=== PATIENT | male | born 1955 | race Two or more races ===

== ENCOUNTER 2018-05-30 06:25 | Day surgery (SDC) | payer BC ==
--- NOTE | 2018-05-23 11:53 | HP ---
DATE OF ADMISSION: 05/30/2018 Patient to be admitted through the [facility] in the near future on 05/30/18. HISTORY: This is a 62-year-old man who for the past several months has developed a progressive bulge involving the central ring of the abdomen and stemming up into the supraumbilical midline. This is consistent with a chronically incarcerated ventral hernia. He presents for reduction and repair. No underlying GI, , or respiratory complaints to suggest predisposition to hernia formation. The patient does occasionally develop seasonal asthma which could be a contributing factor. PAST MEDICAL HISTORY: Significant for hypertension and hypercholesterolemia. No history of heart disease, diabetes, respiratory, renal, or hepatic insufficiency. PAST SURGICAL HISTORY: Nil. ALLERGIES: None known. CURRENT MEDICATIONS: Several but the patient cannot recall the names of such at this time. SOCIAL HISTORY: Negative tobacco. Positive alcohol, up to 10 drinks on Fridays only. FAMILY HISTORY: Father , history of pulmonary fibrosis. Mother , a history of diabetes and associated liver problems. REVIEW OF SYSTEMS: Otherwise nil. PHYSICAL EXAMINATION: Abdomen: The patient is examined in erect and supine position. There is an obvious bulge emanating from the central ring of the abdomen and extending up into the upper midline. In the supine position, it is irreducible. IMPRESSION: Chronically incarcerated ventral hernia. PLAN: Reduction, repair of chronically incarcerated ventral hernia with mesh with or without component separation. Indications, alternatives, and possible complications reviewed. Consent obtained. Issues related to use of a permanent mesh were reviewed at length with patient. The potential complications including infection, migration, rejection, and neuritides reviewed. Consent obtained. Patient to be seen preoperatively by Dr. Lennon of the medical service. Please refer to his notes for those medical details. ANKUSH ROSE M.D. [facility]/[id number] cc: Carrillo Lennon MD MTDD
[2018-05-29 09:29] VITALS: BMI 30.4
[2018-05-30] MEDS ORDERED: TAMSULOSIN HCL 0.4 MG CAP ONE (06:50)
[2018-05-30] MEDS ORDERED: ceFAZolin SODIUM 1 GM VIAL ONE ×2 (06:50→07:29)
[2018-05-30] MEDS ORDERED: SUCCINYLCHOLINE CHLORIDE 200 MG/10 ML VIAL ONE (07:24)
[2018-05-30] MEDS ORDERED: MIDAZOLAM HCL 2 MG/2 ML SINGLE DOSE VIAL ONE ×4 (07:24→07:43)
[2018-05-30] MEDS ORDERED: PROPOFOL 20 ML ONE ×2 (07:24)
[2018-05-30] MEDS ORDERED: fentaNYL CITRATE 250 MCG/5 ML VIAL ONE (07:24)
[2018-05-30] MEDS ORDERED: ROCURONIUM BROMIDE 50 MG/5 ML VIAL ONE ×2 (07:24→08:58)
[2018-05-30] MEDS ORDERED: LIDOCAINE HCL/PF 2% SDV 5ML VIAL ONE (07:29)
[2018-05-30] MEDS ORDERED: LIDOCAINE HCL 2% JELLY (5 ML/TUBE) ONE (07:29)
[2018-05-30] MEDS ORDERED: SODIUM CHLORIDE 0.9% P/F 10 ML VIAL IJ ONE (07:29)
[2018-05-30] MEDS ORDERED: ONDANSETRON 4 MG/2 ML VIAL ONE (07:29)
[2018-05-30] MEDS ORDERED: DEXAMETHASONE SOD PHOSPHATE 4 MG/1 ML VIAL ONE (07:29)
[2018-05-30] MEDS ORDERED: BUPIVACAINE HCL/PF 0.5% (5MG/ML) 10 ML VIAL ONE ×2 (07:36→07:44)
[2018-05-30] MEDS ORDERED: DEXAMETHASONE SOD PHOSPHATE/PF 10 MG/ML SDV ONE ×2 (07:36→07:44)
[2018-05-30] MEDS ORDERED: BUPIVACAINE HCL/PF 0.25% (2.5MG/ML) 10 ML VIAL ONE (07:44)
[2018-05-30] MEDS ORDERED: NEOSTIGMINE METHYLSULFATE 0.5 MG/1 ML - 10 ML MDV ONE (08:39)
[2018-05-30] MEDS ORDERED: ceFAZolin SODIUM 1 GM VIAL IVPB ONE ×2 (08:39)
[2018-05-30] MEDS ORDERED: GLYCOPYRROLATE 0.2 MG/1 ML VIAL ONE (08:39)
[2018-05-30] MEDS ORDERED: oxyCODONE HCL 5 MG TABLET PO PRN (10:11)
[2018-05-30] MEDS ORDERED: ONDANSETRON 4 MG/2 ML VIAL IVPUSH PRN (10:11)
[2018-05-30] MEDS ORDERED: LACTATED RINGERS SOLUTION 1,000 ML IV SCH (10:15)
[2018-05-30] MEDS ORDERED: oxyCODONE HCL 5 MG TABLET PO ONE (11:22)
--- NOTE | 2018-05-30 11:31 | OP ---
DATE OF OPERATION: 05/30/2018 PREOPERATIVE DIAGNOSIS: Incarcerated ventral hernia. POSTOPERATIVE DIAGNOSIS: Incarcerated ventral hernia. PROCEDURE: Open reduction and repair of chronically incarcerated ventral hernia with mesh/intermediate wound closure (5 cm) OPERATING SURGEON: Ankush Russell MD RETAIL ASSOCIATE MANAGER BILINGUAL: Juan Miguel Kelley DO ANESTHESIA: General. ANESTHESIOLOGIST: Carly Dominguez MD HISTORY: This is a 62-year-old man who presents for reduction of chronically incarcerated ventral hernia involving the supraumbilical midline. Indications, alternatives, and possible complications reviewed. Consent was obtained. DESCRIPTION OF PROCEDURE: With the patient in the supine position, under general anesthesia, the abdomen was prepped and draped in sterile fashion using chlorhexidine. A 5-cm transverse incision was made directly over the hernia and deepened into the subcutaneous space. The hernia sac was easily identified and cleaned to the level of the fascial ring. The fascial ring was incised freeing the attachment of the sac at that level. That openly allowed reduction of the sac with its fatty contents into the preperitoneal space. The undersurface of the anterior abdominal musculature was then swept clean using blunt and sharp dissection, creating the preperitoneal/retrorectus space for placement of an underlying mesh. Ultimately, an 8-cm Bard Ventralex hernia disc was selected for the repair. It was placed in the preperitoneal/retrorectus space and pulled up against the undersurface of the anterior abdominal wall with the straps. The mesh was fixed circumferentially using an AbsorbaTack in counter palpation. The straps were removed. The wound was irrigated, and adequate hemostasis noted. The fascia was then closed using a continuous 0 PDS suture beginning at each end of the wound with the suture tied in the wound midpoint, leaving the mesh entirely in the preperitoneal/retrorectus space. The subcutaneous tissues were irrigated, the irrigant retrieved. Adequate hemostasis was ensured. Subcutaneous tissues were then approximated with interrupted 3-0 chromic sutures. Subcuticular was approximated with interrupted 4-0 Biosyn sutures. Skin was approximated using 4-0 Biosyn subcuticular stitch in a continuous fashion. Dermabond applied. Procedure terminated. NEEDLE AND INSTRUMENT COUNT: Correct. ESTIMATED BLOOD LOSS: Minimal. SPECIMENS: None. DRAINS: None. IMPLANT: Bard Ventralex Hernia Patch (8 cm). ANKUSH RUSSELL M.D. [facility]/[id number] cc: Dr. Lennon
[2018-05-30 14:04] VITALS: BP 112/67; PULSE 87; TEMP 98.2
== END 2018-05-30 14:00 | disposition home or self-care (01) ==
LOC: JASU-SURG 06:25
PROVIDERS: ATTEND Surgery
PROC: 0WUF0JZ Supplement Abdominal Wall with Synthetic Substitute, Open Approach (ICD-10-PCS; principal; 2018-05-30 08:00)
DX: K43.6 Other and unspecified ventral hernia with obstruction, without gangrene (principal)
CPT/HCPCS: 94760

== ENCOUNTER 2024-02-02 11:19 | Emergency (ER) | payer OTHER, BC ==
[2024-02-02 11:36] VITALS: BP 153/81; PULSE 73; RESP 18; TEMP 97.1; BMI 29.0
[2024-02-02 12:30] LABS: BASO % 1.6 % (0-2.0); EOS % 2.4 % (0-4.5); HEMATOCRIT 43.6 % (35.4-49); HEMOGLOBIN 14.8 GM/dL (11.7-16.9); LYMPH % 39.8 % (8-40); MCH 31.1 pg (25.7-33.7); MEAN CELL VOLUME 91.3 fl (80-96); MEAN PLT VOLUME 7.7 fl (7.5-11.1); MONO % 8.4 % (3.8-10.2); NEUT % 47.8 % (42.8-82.8); PLATELET COUNT 225 10^3/uL (134-434); RBC 4.77 M/mm3 (4.00-5.60); RDW 13.3 % (11.9-15.9); WHITE BLOOD COUNT 5.1 K/mm3 (4.0-10.0)
[2024-02-02] MEDS ORDERED: MAG HYDROX/AL HYDROX/SIMETH 30 ML UNIT-DOSE CUP ONE (12:32)
[2024-02-02] MEDS ORDERED: ACETAMINOPHEN INJECTION 100 ML IVPB ONE (12:32)
[2024-02-02] MEDS ORDERED: FAMOTIDINE 20 MG/50 ML IVPB 20 MG/50 ML MG IVPB ONE (12:32)
[2024-02-02] MEDS: ACETAMINOPHEN 1000 MG/100 ML BAG IVPB ONE (12:41)
[2024-02-02] MEDS: SODIUM CHLORIDE 0.9% 500 ML INFUS.BAG IV ONE (12:41)
[2024-02-02] MEDS: FAMOTIDINE 20 MG/50 ML IVPB 20 MG/50 ML MG IVPB ONE (12:41)
[2024-02-02] MEDS: MAG HYDROX/AL HYDROX/SIMETH 30 ML UNIT-DOSE CUP PO ONE (12:41)
[2024-02-02 12:54] LABS: POTASSIUM 4.3 mmol/L (3.5-5.1)
[2024-02-02 12:57] LABS: ALBUMIN 3.6 g/dl (3.4-5.0); BLOOD UREA NITROGEN 11.9 mg/dL (7-18)
[2024-02-02 13:00] LABS: CREATININE 0.9 mg/dL (0.55-1.3)
[2024-02-02 13:01] LABS: TOT PROT 7.6 g/dl (6.4-8.2)
[2024-02-02 13:04] LABS: N-TERMINAL BNP 32.5 pg/ml (5-125)
[2024-02-02 13:05] LABS: BILIRUBIN,TOTAL 0.5 mg/dL (0.2-1)
== END 2024-02-02 15:50 | disposition home or self-care (01) ==
LOC: MERGE 11:19 → JER 11:19
PROC: 3E033GC Introduction of Other Therapeutic Substance into Peripheral Vein, Percutaneous Approach (ICD-10-PCS; principal; 2024-02-02)
PROC: 3E033NZ Introduction of Analgesics, Hypnotics, Sedatives into Peripheral Vein, Percutaneous Approach (ICD-10-PCS; 2024-02-02)
DX: R07.2 Precordial pain (principal); Z20.822 Contact with and (suspected) exposure to COVID-19
CPT/HCPCS: 0241U-QW; 36415; 71046-TC-FY; 80053; 83880; 84484; 85025; 93005; 93010; 99285-25; J0131